=== PATIENT | male | born 1955 | race Caucasian/White ===

== ENCOUNTER 2017-01-24 15:47 | Emergency (ER) | payer OTHER ==
[~2017-01-24] VITALS: Ht 165.1 cm; Wt 83.9 kg
[~2017-01-24 15:47] MED LIST: ALLOPURINOL300 M1 PO; LISINOPRIL10 M1 PO; PERCOCET 325 MG1 TA2 PO
--- NOTE | 2017-01-24 17:00 | ED UPPER/LOWER EXTREMITY COMPL ---
History of Present Illness General Chief Complaint: Lower Extremity Problems Stated Complaint: PT HAS PROBLEM IN THE RIGHT HIP Source: patient Exam Limitations: language barrier Vital Signs & Intake/Output Vital Signs & Intake/Output Vital Signs Date Time Temp Pulse Resp B/P B/P Pulse O2 O2 Flow FiO2 Mean Ox Delivery Rate 01/24 1609 97.0 110 20 109/70 98 Room Air Room Air Allergies Coded Allergies: NO KNOWN ALLERGIES (12/24/15) Reconcile Medications Allopurinol 300 MG TABLET 0.5 TAB PO DAILY GOUT (Reported) Aspirin (Ecotrin*) 81 MG TABLET.DR 1 TAB PO DAILY HEART/BLOOD (Reported) Atorvastatin Calcium 40 MG TABLET 1 TAB PO DAILY CHOLESTEROL (Reported) Calcium Carbonate/Vitamin D3 (Calcium 500 + D Tablet) (Unknown Strength) TABLET (Unknown Dose) PO DAILY SUPPLEMENT (Reported) Cyclobenzaprine HCl 10 MG TABLET 1 TAB PO TID muscle strain Lisinopril 10 MG TABLET 1 TAB PO DAILY BP (Reported) [place]-3/Dha/Epa/Fish Oil (Fish Oil 1,000 MG Softgel) (Unknown Strength) CAPSULE (Unknown Dose) PO DAILY SUPPLEMENT (Reported) Pioglitazone HCl 30 MG TABLET 1 TAB PO DAILY DM (Reported) Tylenol With Codeine (Tylenol With Codeine #3 Tablet) 300 MG-30 MG TABLET 1 TAB PO BIDP PRN PAIN Triage Note: PT TO ED WITH C/O "I ATE SAUCE AND NOW I HAVE GOUT" PT TO ED WITH C/O RIGHT FOOT,R LEG, R HIP PAIN "HURTS TO WALK AND WORK". Triage Nurses Notes Reviewed? yes Onset: Abrupt Duration: hour(s): (FEW) Timing: multiple episodes today Severity: mild, moderate Modifying Factors: Worsens With: movement. Associated Symptoms: stiffness HPI: 61 year old french male who presents with right lower back pain with associated right lateral calf pain started today. He woke up with the pain in his leb and back this morning. He thinks it might be gout. Denies trauma, numbness or tingling. Denies any urinary or bowel symptoms. Pain is worse with movement. He did not take anything for pain today. Past History Travel History Traveled to [place] past 21 day No Medical History Any Pertinent Medical History? 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 No Review of Systems Review of Systems Constitutional: Denies: chills, fever, malaise, weakness. EENTM: Reports: no symptoms. Respiratory: Denies: cough, short of breath. Cardiovascular: Denies: chest pain, palpitations. Gastrointestinal/Abdominal: Reports: no symptoms. Genitourinary: Reports: no symptoms. Musculoskeletal: Reports: see HPI (LEG PAIN), back pain. Skin: Reports: no symptoms. Neurological/Psychological: Reports: no symptoms. Hematologic/Endocrine: Denies: bruising, bleeding. Immunological: Denies: splenectomy. All Other Systems: Reviewed and Negative Physical Exam Physical Exam General Appearance: well developed/nourished, mild distress Head: atraumatic Eyes: Bilateral: PERRL, EOMI. Ears, Nose, Throat: normal pharynx, normal ENT inspection, hearing grossly normal Neck: normal inspection, supple Cardiovascular/Respiratory: regular rate/rhythm Back: normal inspection Skin: intact, normal color, warm/dry Lymphatic: no anterior cervical tremaine Progress Differential Diagnosis: fracture, sprain, DJD, ARTHRITIS, BURSITIS Plan of Care: Orders Procedure Date/time Status FingerStick- Glucose 01/24 1730 Active Diagnostic Imaging: Viewed by Me: Radiology Read. Discussed w/RAD: Radiology Read. Radiology Impression: PATIENT: KATHERIN IGNACIO PRESENT AGE: 61 PATIENT ACCOUNT NO: [id number] : 53 LOCATION: [facility] ORDERING PHYSICIAN: JONATHAN TEJEDA MD SERVICE DATE: 01/24/17 EXAM TYPE: RAD - XRY -AP PELVIS; XRY-LUMBOSACRAL SPINE 4 VIEWS EXAMINATION: XR LUMBAR SPINE AND PELVIS CLINICAL INFORMATION: Low back pain. COMPARISON: CT of the abdomen and pelvis from 06/05/2013. TECHNIQUE: AP view of the pelvis. 4 views of the lumbosacral spine FINDINGS: There are 5 nonrib-bearing lumbar type vertebral bodies. There is a minor dextroconvex upper lumbar scoliosis, unchanged. There is no compression deformity. No evidence of spondylolyses. The intervertebral discs are fairly well-maintained. Minor endplate spurring. Multilevel facet arthropathy. Moderate atherosclerotic calcification within the aorta. The SI joints are unremarkable. The pubic symphysis and hips appear unremarkable. The bowel gas pattern is nonobstructive. Several phleboliths/coarse calcifications projecting over the anterior pelvis. IMPRESSION: Mild multilevel lumbar spondylosis without compression deformity. Mild dextroconvex scoliosis. DICTATED BY: KING ELAM MD DATE/TIME DICTATED:01/24/171816 SUPERVISOR MODEL MAKING: STEPHON DATE/TIME TRANSCRIBED:01/24/171816 CONFIDENTIAL, DO NOT COPY WITHOUT APPROPRIATE AUTHORIZATION. <Electronically signed in Other Vendor System> SIGNED BY: KING ELAM MD 01/24/171821 Comments: PATIENT: KATHERIN IGNACIO PRESENT AGE: 61 PATIENT ACCOUNT NO: [id number] : 53 LOCATION: [facility] ORDERING PHYSICIAN: JONATHAN TEJEDA MD SERVICE DATE: 01/24/17 EXAM TYPE: RAD - XRY-AP PELVIS; XRY-LUMBOSACRAL SPINE 4 VIEWS EXAMINATION: XR LUMBAR SPINE AND PELVIS CLINICAL INFORMATION: Low back pain. COMPARISON: CT of the abdomen and pelvis from 06/05/2013. TECHNIQUE: Departure Departure Time of Disposition: 1819 Disposition: HOME OR SELF CARE Condition: Stable Clinical Impression Primary Impression: Acute low back pain Referrals: PATIENT HAS NO PRIMARY CARE DR (PCP/Family) Additional Instructions: TAKE THE TYLENOL #3 DIRECTED IF OVER THE COUNTER TYLENOL ISN'T WORKING. TAKE THE FLEXERIL NEEDED FOR SPASM AT NIGHT. FOLLOW UP WITH THE PRIMARY CARE DOCTOR LISTED. RETURN NEEDED. Departure Forms: Customer Survey General Discharge Information Prescriptions: Current Visit Scripts Tylenol With Codeine (Tylenol With Codeine #3 Tablet) 1 TAB PO BIDP PRN PAIN #12 TAB Cyclobenzaprine HCl 1 TAB PO TID #30 TAB
[2017-01-24] MEDS ORDERED: PIOGLITAZONE HC30 M1 PO (18:05)
[2017-01-24] MEDS ORDERED: ATORVASTATIN CA40 M1 PO (18:05)
[2017-01-24] MEDS ORDERED: ASPIRIN EC81 M1 PO (18:06)
[2017-01-24] MEDS ORDERED: FISH OIL 1,001000 MG PO (18:06)
[2017-01-24] MEDS ORDERED: CALCIUM 500 +1 EAC5 PO (18:07)
--- NOTE | 2017-01-24 18:22 | RADIOLOGY REPORT ---
EXAMINATION: XR LUMBAR SPINE AND PELVIS CLINICAL INFORMATION: Low back pain. COMPARISON: CT of the abdomen and pelvis from 06/05/2013. TECHNIQUE: AP view of the pelvis. 4 views of the lumbosacral spine FINDINGS: There are 5 nonrib-bearing lumbar type vertebral bodies. There is a minor dextroconvex upper lumbar scoliosis, unchanged. There is no compression deformity. No evidence of spondylolyses. The intervertebral discs are fairly well-maintained. Minor endplate spurring. Multilevel facet arthropathy. Moderate atherosclerotic calcification within the aorta. The SI joints are unremarkable. The pubic symphysis and hips appear unremarkable. The bowel gas pattern is nonobstructive. Several phleboliths/coarse calcifications projecting over the anterior pelvis. IMPRESSION: Mild multilevel lumbar spondylosis without compression deformity. Mild dextroconvex scoliosis.
[2017-01-24] MEDS ORDERED: TYLENOL WITH C1 EACH PO (18:25)
[2017-01-24] MEDS ORDERED: CYCLOBENZAPRINE10 M1 PO (18:25)
[2017-01-24 18:33] VITALS: BP 115/74
[2017-01-25] MEDS ORDERED: CYCLOBENZAPRINE10 M1 PO (16:21)
== END 2017-01-24 18:33 ==
LOC: ERH 15:47
DX: M54.5 Low back pain (principal)
CPT/HCPCS: 72110; 72170

== ENCOUNTER 2017-02-01 07:23 | Emergency (ER) | payer OTHER ==
[~2017-02-01] VITALS: Ht 162.6 cm; Wt 83.9 kg
[~2017-02-01 07:23] MED LIST changes: +ASPIRIN EC81 M1 PO; +ATORVASTATIN CA40 M1 PO; +CALCIUM 500 +1 EAC5 PO; +CYCLOBENZAPRINE10 M1 PO; +FISH OIL 1,001000 MG PO; +PIOGLITAZONE HC30 M1 PO; +TYLENOL WITH C1 EACH PO
[2017-02-01 07:32] VITALS: BP 145/86
[2017-02-01] MEDS ORDERED: TYLENOL WITH C1 EACH PO (07:44)
[2017-02-01] MEDS ORDERED: ALLOPURINOL300 M1 PO (07:44)
[2017-02-01] MEDS ORDERED: CYCLOBENZAPRINE10 M1 PO (07:44)
[2017-02-01] MEDS ORDERED: LISINOPRIL10 M1 PO (07:44)
[2017-02-01] MEDS ORDERED: ATORVASTATIN CA40 M1 PO (07:44)
--- NOTE | 2017-02-01 07:45 | ED GENERAL ADULT ---
History of Present Illness General Chief Complaint: General Adult Stated Complaint: MEDICATION REFILL Source: patient, old records Exam Limitations: no limitations Vital Signs & Intake/Output Vital Signs & Intake/Output Vital Signs Date Time Temp Pulse Resp B/P B/P Pulse O2 O2 Flow FiO2 Mean Ox Delivery Rate 02/01 0732 97.3 80 16 145/86 97 Room Air Allergies Coded Allergies: NO KNOWN ALLERGIES (12/24/15) Reconcile Medications Allopurinol 300 MG TABLET 0.5 TAB PO DAILY GOUT (Reported) Allopurinol 300 MG TABLET 0.5 TAB PO DAILY GOUT Aspirin (Ecotrin*) 81 MG TABLET.DR 1 TAB PO DAILY HEART/BLOOD (Reported) Atorvastatin Calcium 40 MG TABLET 1 TAB PO DAILY CHOLESTEROL (Reported) Atorvastatin Calcium 40 MG TABLET 1 TAB PO DAILY HIGH CHOLESTEROL Calcium Carbonate/Vitamin D3 (Calcium 500 + D Tablet) (Unknown Strength) TABLET (Unknown Dose) PO DAILY SUPPLEMENT (Reported) Cyclobenzaprine HCl 10 MG TABLET 1 TAB PO Q8P PAIN OR SPASM Cyclobenzaprine HCl 10 MG TABLET 1 TAB PO TID muscle strain Lisinopril 10 MG TABLET 1 TAB PO DAILY BP (Reported) Lisinopril 10 MG TABLET 1 TAB PO DAILY HIGH BLOOD PRESSURE [place]-3/Dha/Epa/Fish Oil (Fish Oil 1,000 MG Softgel) (Unknown Strength) CAPSULE (Unknown Dose) PO DAILY SUPPLEMENT (Reported) Pioglitazone HCl 30 MG TABLET 1 TAB PO DAILY DM (Reported) Tylenol With Codeine (Tylenol With Codeine #3 Tablet) 300 MG-30 MG TABLET 1 TAB PO BIDP PRN PAIN Tylenol With Codeine (Tylenol With Codeine #3 Tablet) 300 MG-30 MG TABLET 1 TAB PO Q8P PRN PAIN Triage Note: PT LOOKING FOR MED REFILL ON CYCLOBENZARINE AND TYLENOL #3 FOR HIS LOW BACK PAIN. PT SEEN 01/24 FOR SAME AND GIVEN SCRIPTS. Triage Nurses Notes Reviewed? yes HPI: Patient presents for medication refill. Patient ran out of his antihypertensive and high cholesterol medication as well as the pain medication that he received last time he was here. Patient states that his primary doctor is too far away to go see and the pharmacy attempted to refill up with his doctor. States that he needs to be seen before he can give him a refill. Patient states that he needs to find another doctor because he cannot get to the one that he is to go to. Patient states that he still is having the pain in his right lower back that radiates on his right leg. Patient states that the only thing that helps is when he takes the Tylenol with codeine as well as the Flexeril but he ran out of both of those. Patient denies any numbness or weakness. There is no incontinence of bowel or bladder. Past History Travel History Traveled to [place] past 21 day No Medical History Any Pertinent Medical History? 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 No Review of Systems Review of Systems Constitutional: Reports: no symptoms. Respiratory: Reports: no symptoms. Cardiovascular: Reports: no symptoms. GI: Reports: no symptoms. Musculoskeletal: Reports: see HPI, back pain. Neurological/Psychological: Reports: no symptoms. Immunologic/Allergic: Reports: no symptoms. Physical Exam Physical Exam General Appearance: well developed/nourished, alert, awake Eyes: Bilateral: PERRL, EOMI. Neck: normal inspection, supple Respiratory: normal breath sounds, chest non-tender, no respiratory distress, lungs clear Cardiovascular: regular rate/rhythm, normal peripheral pulses Gastrointestinal: normal bowel sounds, soft, non-tender, no organomegaly Back: muscle spasm Neurologic/Psych: no motor/sensory deficits, awake, alert, oriented x 3, normal gait, normal mood/affect Lymphatic: no anterior cervical tremaine Core Measures ACS in differential dx? No CVA/TIA Diagnosis: No Severe Sepsis Present: No Septic Shock Present: No Progress Differential Diagnoses I considered the following diagnoses in my evaluation of the patient: [ Medication refill] Plan of Care: Refill medication Initial ED EKG: none Departure Departure Disposition: HOME OR SELF CARE Condition: Stable Clinical Impression Primary Impression: Medication refill Referrals: PATIENT HAS NO PRIMARY CARE DR (PCP/Family) Additional Instructions: YOU NEED TO FIND A DOCTOR CLOSER TO YOU SO YOU CAN FOLLOW UP WITH THEM FOR FUTURE REFILLS ON YOUR MEDICATIONS. THIS IS NOT WHAT EMERGNCY DEPARTMENTS ARE FOR. PLEASE RETURN FOR ANY EMERGENCIES OR FOR ANY CONCERNS Departure Forms: Customer Survey General Discharge Information Prescriptions: Current Visit Scripts Lisinopril 1 TAB PO DAILY #30 TAB Atorvastatin Calcium 1 TAB PO DAILY #30 TAB Allopurinol 0.5 TAB PO DAILY #30 TAB Tylenol With Codeine (Tylenol With Codeine #3 Tablet) 1 TAB PO Q8P PRN PAIN #20 TAB Cyclobenzaprine HCl 1 TAB PO Q8P #20 TAB Critical Care Note Critical Care Note Critical Care Time: non-applicable
== END 2017-02-01 07:48 ==
LOC: ERH 07:23
DX: Z76.0 Encounter for issue of repeat prescription (principal)

== ENCOUNTER 2017-02-05 08:38 | Emergency (ER) | payer OTHER ==
[~2017-02-05] VITALS: Ht 162.6 cm; Wt 83.9 kg
[2017-02-05 08:46] VITALS: BP 153/102
[2017-02-05] MEDS ORDERED: HYDROCODON-ACE1 EAC2 PO (09:48)
--- NOTE | 2017-02-05 09:49 | ED NECK/BACK PAIN COMPLAINT ---
History of Present Illness General Chief Complaint: Low Back Pain/Injury Stated Complaint: LOWER BACK PAIN Source: patient Exam Limitations: no limitations Vital Signs & Intake/Output Vital Signs & Intake/Output Vital Signs Date Time Temp Pulse Resp B/P B/P Pulse O2 O2 Flow FiO2 Mean Ox Delivery Rate 02/05 0846 97.3 110 20 153/102 96 Room Air Allergies Coded Allergies: NO KNOWN ALLERGIES (12/24/15) Reconcile Medications Allopurinol 300 MG TABLET 0.5 TAB PO DAILY GOUT Aspirin (Ecotrin*) 81 MG TABLET.DR 1 TAB PO DAILY HEART/BLOOD (Reported) Atorvastatin Calcium 40 MG TABLET 1 TAB PO DAILY HIGH CHOLESTEROL Calcium Carbonate/Vitamin D3 (Calcium 500 + D Tablet) (Unknown Strength) TABLET (Unknown Dose) PO DAILY SUPPLEMENT (Reported) Cyclobenzaprine HCl 10 MG TABLET 1 TAB PO Q8P PAIN OR SPASM Hydrocodone/Acetaminophen (Hydrocodon-Acetaminophen 5-325) 5 MG-325 MG TABLET 1-2 TAB PO Q4-6 PRN PRN pain Lisinopril 10 MG TABLET 1 TAB PO DAILY HIGH BLOOD PRESSURE [place]-3/Dha/Epa/Fish Oil (Fish Oil 1,000 MG Softgel) (Unknown Strength) CAPSULE (Unknown Dose) PO DAILY SUPPLEMENT (Reported) Pioglitazone HCl 30 MG TABLET 1 TAB PO DAILY DM (Reported) Tylenol With Codeine (Tylenol With Codeine #3 Tablet) 300 MG-30 MG TABLET 1 TAB PO Q8P PRN PAIN Triage Note: PT BIBA TO ED C/O LOWER BACK PAIN. SEEN X 2 FOR SAME. Triage Nurses Notes Reviewed? yes Onset: Abrupt Duration: week(s): (few), constant, continues in ED Timing: recent history Quality/Severity: moderate, severe Method of Injury: unknown Loss of Consciousness: no loss of consciousness HPI: 61-year-old male comes into emergency room for further evaluation of right lower back pain has been going on for the past few weeks. Patient was seen here already and had x-rays performed he said. He has arthritis. Pain shoots down to his right leg. Denies any fever chills vomiting. Denies any chest pain abdominal pain. Patient reports some left-sided toe pain this morning. History of gout. Nothing seems to make the symptoms better or worse. Denies any other associated symptoms. (EITAN TOWNSEND,WINSOME) Past History Travel History Traveled to [place] past 21 day No Medical History Any Pertinent Medical History? 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 No (WINSOME CERDA) Review of Systems Review of Systems Constitutional: Reports: no symptoms. Eyes: Reports: no symptoms. Ears, Nose, Throat, Mouth: Reports: no symptoms. Respiratory: Reports: no symptoms. Cardiovascular: Reports: no symptoms. Gastrointestinal/Abdominal: Reports: no symptoms. Musculoskeletal: Reports: see HPI. Skin: Reports: no symptoms. Neurological/Psychological: Reports: no symptoms. All Other Systems: Reviewed and Negative (WINSOME CERDA) Physical Exam Physical Exam General Appearance: well developed/nourished, no apparent distress, alert Head: atraumatic Eyes: Bilateral: normal appearance. Ears, Nose, Throat, Mouth: hearing grossly normal, moist mucous membrane Neck: normal inspection, full range of motion Respiratory: normal breath sounds, no respiratory distress Gastrointestinal: soft Back: normal inspection, normal range of motion Extremities: normal range of motion Motor: Deficit L4 Right: No Deficit L4 Left: No Deficit L5 Right: No Deficit L5 Left: No Deficit S1 Right: No Deficit S1 Right: No Neurologic/Psych: awake, alert, oriented x 3, normal mood/affect Skin: intact, normal color, warm/dry (WINSOME CERDA) Progress Differential Diagnosis: C spine injury, carotid dissection, cauda equina syn, herniated disc, myofascial strain, pyelo/UTI, sciatica, spinal cord inj, thoracic outlet syn, T/L spine injury, ureterolithiasis Plan of Care: 02/05/2017 10:16:39 AM Pain is likely consistent with sciatica pain. Patient was given a prescription for Vicodin. After the pressure feeling since he reports that the Vicodin does not work as well and he would prefer Percocet. I told him that he can talk with his regular doctor but I cannot cancel the prescription at this time. He has no abdominal pain or any other concerns or complaints. Some mild redness to his left second digit. Could be early gout flare. Patient currently on medications for gout. Patient told to follow-up with his primary care doctor. Return if any other concerns. He clinically looks well and is in no apparent distress upon discharge. (WINSOME CERDA) Departure Departure Disposition: HOME OR SELF CARE Condition: Stable Clinical Impression Primary Impression: Sciatica Referrals: PATIENT HAS NO PRIMARY CARE DR (PCP/Family) Additional Instructions: Take Vicodin as prescribed. Do not take Tylenol with codeine with this medication. Return if any concerns worsening symptoms. Follow-up with your primary care doctor. Please go over all results of today's visit with your primary care doctor. Contact your primary care doctor to let them know you were here in the emergency room. There may be nonspecific findings which may not be related to your visit today here in the emergency room but may require further evaluation and chronic monitoring by your primary care doctor. If you had a laceration today the chance of foreign body always remains. You should follow-up with your primary care doctor for recheck in 3-5 days for a wound check. If you had an x-ray done there is a chance that a fracture could have been missed on initial read and you should follow-up with your primary care doctor for repeat x-rays if symptoms persist. If your blood pressure was elevated here in the emergency room please have rechecked by her primary care doctor within the next 48 hours by your primary care doctor. If you were prescribed a narcotic here in the emergency room or any type of controlled substances you're not allowed to drive while taking this medication or operate any type of heavy machinery. Narcotics can make you feel lightheaded dizziness nausea and can cause constipation. You may need to hand picker a stool softener. Thank you for choosing [facility] emergency room. Please return to the emergency room immediately if you have any other concerns worsening of symptoms. Departure Forms: Customer Survey General Discharge Information Prescriptions: Current Visit Scripts Hydrocodone/Acetaminophen (Hydrocodon-Acetaminophen 5-325) 1-2 TAB PO Q4-6 PRN PRN pain #15 TAB (WINSOME CERDA) PA/FOREST RANGER TECHNICIAN Co-Sign Statement Statement: ED Attending supervision documentation- x I saw and evaluated the patient. I have also reviewed all the pertinent lab results and diagnostic results. I agree with the findings and the plan of care as documented in the PA's/FOREST RANGER TECHNICIAN's documentation. [] I have reviewed the ED Record and agree with the PA's/FOREST RANGER TECHNICIAN's documentation. [] Additions or exceptions (if any) to the PAs/FOREST RANGER TECHNICIAN's note and plan are summarized below: [] (ZHEN MENDOZA,MOSHE)
== END 2017-02-05 10:00 ==
LOC: ERH 08:38
DX: M54.41 Lumbago with sciatica, right side (principal)